=== PATIENT | female | born 1980 | race Caucasian/White ===

== ENCOUNTER 2024-06-08 20:36 | Emergency (ER) | payer OTHER, MEDICARE, SELFPAY ==
[2024-06-08 20:41] VITALS: BP 168/107; PULSE 94; RESP 16; TEMP 36.4; O2SAT 99; BMI 25.8
[2024-06-08 20:53] LABS: Appearance Urine Slightly Cloudy (Clear); Bilirubin Urine Negative (Negative); Blood Urine 3+ (Negative); Color Urine Yellow (Yellow); Glucose Urine Negative (Negative); Ketones Urine Negative (Negative); Leukocyte Esterase Urine 1+ (Negative); Nitrite Urine Positive (Negative); Protein Urine Negative (Negative); Urobilinogen Urine 0.2 (0.2-1.0); pH Urine 6.5 (5.0-8.5)
[2024-06-08 20:55] LABS: Ur HCG Qualitative* Negative (Negative)
--- NOTE | 2024-06-08 21:01 | ED_ITS ---
HPI - General Adult General Date Seen: 06/08/24 Chief complaint: Urogenital Problems, Female Stated complaint: Chunks of blood in urine, painful Time Seen by Provider: 06/08/24 20:47 History of Present Illness HPI narrative: Very pleasant 43-year-old female with a past medical history of low back problems and multiple lumbar spine surgeries, anxiety, diabetes on metformin, and history of UTIs resent into the ER with dysuria and hematuria. She has noted some dysuria for the past 2 or 3 days and has been taking azo which had been effective. Tonight her dysuria got worse and became much more severe pain with urination. She took azo but did not relieve the symptoms. Also tonight her urine changed and she actually passed a couple of small cause of blood through her urethra. She is feeling a little bit achy and is having a flare of her low back pain to day but is not running fever. No chills. No nausea vomiting. Bowel movements have been normal. No anterior abdominal pain. She is having some pain in her lower lumbar spine but no pain directly in the flank. Related Data Allergies Allergy/AdvReac Type Severity Reaction Status Date / Time Penicillins Allergy Intermediate Hives Verified 06/08/24 20:44 Exam Narrative: Exam Narrative: Constitutional: Appears well-developed and well-nourished. Alert. Conversant and polite. Non toxic. HENT: Head: Atraumatic. Nose: Nose normal. Mouth/Throat: Oral mucosa is clear and moist. no trismus. Eyes: Conjunctivae normal. EOM normal. Pupils equal, round, and reactive to light. No scleral icterus. Neck: Normal range of motion. Neck supple. No tracheal deviation present. Cardiovascular: Normal rate, regular rhythm. No gallop. No friction rub. No murmur heard. Normal cap refill x4 extremities Pulmonary/Chest: Effort normal. No stridor. No respiratory distress. No wheezes. No rales. No rhonchi . No rib tenderness. Abdominal: Soft. Bowel sounds normal. No distension. No mass. No tenderness. No rebound. No guarding. No CVA tenderness. Musculoskeletal: She does have multiple healed lumbar spine incisions. They all look good. She is mildly tender over the lower lumbar spine and paraspinous muscles. No CVA tenderness. RUE: Normal range of motion. No tenderness. No deformity LUE: Normal range of motion. No tenderness. No deformity RLE: Normal range of motion. No edema. No tenderness. No deformity LLE: Normal range of motion. No edema. No tenderness. No deformity Neurological: Alert and oriented to person, place, and time. Normal strength. CN II-VII intact. No sensory deficit. GCS eye subscore is 4. GCS verbal subscore is 5. GCS motor subscore is 6. Normal coordination Skin: Skin is warm and dry. No rash noted. No pallor. Normal capillary refill. Psychiatric: Normal mood. Normal affect. Const: Vital Signs, click to edit/add: Vital Signs - 24 hr 06/08/24 20:41 Temperature 97.6 F Pulse Rate [Left P ulse Oximeter] 94 Respiratory Rate 16 Blood Pressure [Ri ght Upper Arm] 168/107 H Pulse Oximetry 99 Oxygen Delivery Me thod Room Air Course Vital Signs Vital signs: Initial Vital Signs Temperature 97.6 F 06/08/24 20:41 Temperature Source Temporal Artery Scan 06/08/24 20:41 Pulse Rate 94 06/08/24 20:41 Pulse Rhythm Regular 06/08/24 20:41 Respiratory Rate 16 06/08/24 20:41 Blood Pressure 168/107 H 06/08/24 20:41 Blood Pressure Mean 127 H 06/08/24 20:41 Blood Pressure Position Sitting 06/08/24 20:41 Pulse Oximetry 99 06/08/24 20:41 Oxygen Delivery Method Room Air 06/08/24 20:41 Vital Signs Temperature 97.6 F 06/08/24 20:41 Pulse Rate 94 06/08/24 20:41 Respiratory Rate 16 06/08/24 20:41 Blood Pressure 168/107 H 06/08/24 20:41 Pulse Oximetry 99 06/08/24 20:41 Oxygen Delivery Method Room Air 06/08/24 20:41 Temperature 97.6 F 06/08/24 20:41 Pulse Rate 94 06/08/24 20:41 Respiratory Rate 16 06/08/24 20:41 Blood Pressure 168/107 H 06/08/24 20:41 Pulse Oximetry 99 06/08/24 20:41 Oxygen Delivery Method Room Air 06/08/24 20:41 Medical Decision Making MDM Narrative Medical decision making narrative: This patient presents for evaluation of dysuria ongoing for the past few days, worsening tonight with development of kei hematuria this evening. This clinically is consistent with a urinary tract infection. Urinalysis confirms the infection. There has been no fever, back/flank pain or significant abdominal pain. There is no clinical evidence of pyelonephritis, appendicitis, colitis, diverticulitis or any intraabdominal catastrophe. The patient will be started on antibiotics for the infection. Return if increasing pain, vomiting, fever, or inability to tolerate the oral antibiotic. Follow up with primary physician is indicated if not improving in 2-3 days. Instymeds prescription for cephalexin 500 mg b.i.d. for 7 days. Lab Data Labs: Lab Results 06/08/24 Range/Units Unknown Urine Color Yellow (Yellow) Urine Appearance Slightly Cloudy A (Clear) Urine pH 6.5 (5.0-8.5) Ur Specific [place] 1.010 (1.000-1.030) Urine Protein Negative (Negative) Urine Glucose (UA) Negative (Negative) Urine Ketones Negative (Negative) Urine Blood 3+ A (Negative) Urine Nitrite Positive A (Negative) Urine Bilirubin Negative (Negative) Urine Urobilinogen 0.2 (0.2-1.0) Ur Leukocyte Esterase 1+ A (Negative) Urine RBC 0-2 (0-2) Urine WBC 5-10 A (0-5) Ur Squamous Epith Cells Few (None-Few) Urine Bacteria None (None) Urine HCG, Qual Negative (Negative) Discharge Plan Discharge Clinical Impression: Urinary tract infection, Hematuria Patient Disposition: Home, Self-Care Condition: Stable Instructions: Urinary Tract Infection in Women (DC), Urinary Tract Infection in (ED) Additional Instructions: As we discussed, please come back to the ER if you have worsening symptoms such as high fever, kidney pain or flank pain, nausea vomiting, or other worsening. Start the antibiotics (cephalexin) tonight and take them twice daily for 7 days. Someone from the hospital will call you in 1 or 2 days if urine culture shows that we need to change your antibiotic. If you have any further blood in your urine , please recheck with your doctor or come back to the ER. Stand Alone Forms: [employer] Info Instructions
[2024-06-08 21:15] LABS: RBC Urine 0-2 (0-2); Squamous Epithelial Cell Urine Few (None-Few)
== END 2024-06-08 21:44 | disposition home or self-care (01) ==
LOC: ED 21:43
PROVIDERS: Emergency Provider Emergency Medicine
DX: N39.0 Urinary tract infection, site not specified (principal)
CPT/HCPCS: 81001; 81025; 87086; 99282; 99283